=== PATIENT | female | born 1950 | race African-American/Black ===

== ENCOUNTER 2016-11-17 06:17 | Day surgery (SDC) | payer MEDICARE, OTHER ==
--- NOTE | ~2016-11-17 | OP ---
Record Of Operation [facility] [address] [place]. [address] NAME: WOODY BROWN : 54 STATUS : [facility]#: [id number] AGE: 65 ADM/REG DATE : 11/17/16 MR#: [id number] REPORT SERV DATE: 11/18/16 DICTATED BY: MEMO ROCHE DATE: 11/18/16 REPORT STATUS : Draft TRANSCRIBED BY: MODAretha DATE: 11/18/16 DATE OF PROCEDURE: 11/17/2016 PREPROCEDURE DIAGNOSIS: End-stage renal disease. POSTPROCEDURE DIAGNOSIS: End-stage renal disease. PROCEDURE PERFORMED: Creation of a left arm bovine AV graft brachial artery to axillary vein utilizing intraoperative ultrasound guidance. ANESTHESIA: Local MAC with upper arm block. INDICATION FOR PROCEDURE: Secondary to this 65-year-old female presenting with loss of access in the right upper extremity after two year run with peritoneal dialysis. The patient has subsequently PD and requires a graft placed for continued hemodialysis. Risks and benefits were discussed. Consent was obtained. DETAILS OF PROCEDURE: The patient was brought to the operating room, prepped and draped in routine sterile fashion with attention to the left arm. A scalene block was performed by anesthesia and MAC anesthesia was instituted as well. Local anesthesia was supplied in the areas of incision. Ultrasound was utilized to locate the axillary vein which was marked along the skin as well as the brachial artery. Incisions were made based of this finding, and please note that pictures were taken of the ultrasounds drive structures. First the brachial artery dissected down upon, this was then loop controlled and skeletonized and prepared for graft creation. The axillary vein was then dissected down upon and loop controlled and then skeletonized to a point where this could be utilized for dialysis access. Next, 5000 units of heparin was given and allowed to circulate. The brachial artery was then clamped, opened, spatulated and then end-to-side anastomosis was then performed to the 6 mm bovine AV graft. 6 mm graft was then tailored down to 2.5 mm. The anastomosis was performed with a 6-0 Prolene on a BV needle in a running continuous stitch and was hemostatic upon completion. This was tunneled under the skin in a curvilinear fashion back to the axillary vein. The graft was then tailored to fit the vein. The vein was then clamped, opened, and spatulated, and the anastomosis was performed with a 6-0 Prolene on a C1 needle in a running continuous stitch. With that completed, the anastomoses were hemostatic. There was dopplerable signal in the brachial artery in the forearm and the ulnar artery in the hand. Renal artery was diminutive. At this point, the wounds were then closed with Vicryl and Monocryl for the skin. Steri-Strips dressings were applied. The patient tolerated the procedure well. LEONARD/ROSHAN Memo Roche M.D. Record Of [address] [place]. [address] NAME: WOODY BROWN : 54 STATUS : [facility] PAT#: [id number] AGE: 65 ADM/REG DATE : 11/17/16 MR#: [id number] REPORT SERV DATE: 11/18/16 DICTATED BY: MEMO ROCHE DATE: 11/18/16 REPORT STATUS : Draft TRANSCRIBED BY: ROSHAN DATE: 11/18/16 / [id number] CC: Rita Christian PA
[~2016-11-17 06:17] MED LIST: *DENIES; APRES25 PO; ASAB PO; ASAEC PO; BIST PO; BRILINTA90 MG PO; COREG12 PO; COREG25 PO; COZAAR100 MG PO; DENIES TAKING MEDS; EZFE 200200 MG PO; FOLIC PO; GGEXPUD PO; L20 PO; LEVEMIR SC; LIPITOR20 PO; MEGACEUDL PO; MIRALAXPKT PO; MUCINEX600 MG PO; NORCO1 TA1 PO; NORCO1 TA2 PO; NORCO1 TAB PO; NORV10 PO; NORV5 PO; NOVOLOG SC; NOVOPEN SC; NUTRA/PRO PO; NXL9 PO; PHOSLO PO; PRILO PO; PRIN20 PO; PROTONIX PO; REG PO; REG5 PO; ROCALTROL PO; ROCALTROL0.25 MCG PO; ROCALTROL0.5 MCG PO; T PO; TESS PO; TUMSROLL PO; VITAFOL OR; VITAMIN D1000 UNI1 PO; WHITE WILLOW BARK PO; ZITHROMAX100 MG/5 M T; ZOCOR10 PO; ZOFRAN ODT4 MG PO; [UNRECOGNIZED DRUG - REMARK] TOP
[2016-11-17 07:02] LABS: BASOPHILS 0.7 %; BASOPHILS ABSOLUTE 0.06 10/3/uL (0.0-0.16); EOSINOPHILS 4.7 %; EOSINOPHILS ABSOLUTE 0.39 10/3/uL (0.0-0.53); IMMATURE GRANULOCYTES 0.2 %; IMMATURE GRANULOCYTES ABSOLUTE 0.02 10/3/uL (0.0-0.11); LYMPHOCYTES 25.6 %; LYMPHOCYTES ABSOLUTE 2.14 10/3/uL (0.67-4.30); MEAN CORPUSCULAR HEMOGLOB 27.1 pg (26.0-34.0); MEAN PLATELET VOLUME 9.5 fL (9.2-13.0); MONOCYTES 5.4 %; MONOCYTES ABSOLUTE 0.45 10/3/uL (0.21-1.20); NEUTROPHILS 63.4 %; NEUTROPHILS ABSOLUTE 5.29 10/3/uL (2.02-8.40); PLATELET COUNT 265 10/3/uL (150-400); WHITE BLOOD CELLS 8.4 10/3/uL (4.5-10.5)
[2016-11-17 07:16] LABS: BUN (BLOOD UREA NITROGEN) 35 MG/DL (6-23); CHLORIDE, SERUM 98 MMOL/L (96-112); CO2 (CARBON DIOXIDE) 26 MMOL/L (24-34); GLUCOSE, SERUM 94 MG/DL (60-99); HEMATOCRIT 44.9 % (36.0-48.0); HEMOGLOBIN 14.7 g/dL (12.0-16.0); MANUAL DIFF NO %; MEAN CORPUS HGB CONC 32.7 g/dL (32.0-36.0); MEAN CORPUSCULAR VOLUME 82.8 fL (80-100); RED CELL COUNT 5.42 10/6/uL (4.0-5.6)
[2016-11-17 07:17] LABS: CALCIUM, SERUM 8.9 MG/DL (8.5-10.4); CREATININE 8.04 MG/DL (0.55-1.02); GFR AFRICAN AMERICAN 6 ML/MIN (>=60); GFR NON AFRICAN AMERICAN 5 ML/MIN (>=60); POTASSIUM, SERUM 4.3 MMOL/L (3.5-5.3); SODIUM, SERUM 137 MMOL/L (135-148)
== END 2016-11-17 15:00 | disposition home or self-care (01) ==
LOC: SDC 06:17
PROVIDERS: Specialist
PROC: 03180ZF Bypass Left Brachial Artery to Lower Arm Vein, Open Approach (ICD-10-PCS; principal; 2016-11-17 07:45)
DX: I12.0 Hypertensive chronic kidney disease with stage 5 chronic kidney disease or end stage renal disease (principal); E11.22 Type 2 diabetes mellitus with diabetic chronic kidney disease; N18.6 End stage renal disease; I25.10 Atherosclerotic heart disease of native coronary artery without angina pectoris; E11.40 Type 2 diabetes mellitus with diabetic neuropathy, unspecified; E78.00 Pure hypercholesterolemia, unspecified; K21.9 Gastro-esophageal reflux disease without esophagitis; H91.90 Unspecified hearing loss, unspecified ear; M19.90 Unspecified osteoarthritis, unspecified site; Z95.5 Presence of coronary angioplasty implant and graft; Z91.048 Other nonmedicinal substance allergy status; Z79.899 Other long term (current) drug therapy; Z87.891 Personal history of nicotine dependence; Z99.2 Dependence on renal dialysis; Z90.89 Acquired absence of other organs; Z98.890 Other specified postprocedural states
CPT/HCPCS: 71010; 80048; 82962; 85025; 93005; C1768; J0690; J2250; J2795; J3010

== ENCOUNTER 2016-12-31 19:44 | Emergency (ER) | payer MEDICARE, OTHER ==
[2016-12-31 19:24] LABS: BASOPHILS 1.4 %; BASOPHILS ABSOLUTE 0.12 10/3/uL (0.0-0.16); EOSINOPHILS 10.5 %; EOSINOPHILS ABSOLUTE 0.89 10/3/uL (0.0-0.53); HEMOGLOBIN 12.3 g/dL (12.0-16.0); IMMATURE GRANULOCYTES 0.1 %; IMMATURE GRANULOCYTES ABSOLUTE 0.01 10/3/uL (0.0-0.11); LYMPHOCYTES 45.1 %; LYMPHOCYTES ABSOLUTE 3.81 10/3/uL (0.67-4.30); MEAN CORPUS HGB CONC 31.8 g/dL (32.0-36.0); MEAN CORPUSCULAR HEMOGLOB 26.5 pg (26.0-34.0); MEAN CORPUSCULAR VOLUME 83.2 fL (80-100); MEAN PLATELET VOLUME 9.6 fL (9.2-13.0); MONOCYTES 7.8 %; MONOCYTES ABSOLUTE 0.66 10/3/uL (0.21-1.20); NEUTROPHILS 35.1 %; NEUTROPHILS ABSOLUTE 2.95 10/3/uL (2.02-8.40); PLATELET COUNT 205 10/3/uL (150-400); RBC DISTRIBUTION WIDTH 16.9 % (12.0-16.0); RED CELL COUNT 4.65 10/6/uL (4.0-5.6); WHITE BLOOD CELLS 8.4 10/3/uL (4.5-10.5)
[2016-12-31 19:26] LABS: HEMATOCRIT 38.7 % (36.0-48.0); MANUAL DIFF NO %
[2016-12-31 19:42] LABS: CALCIUM, SERUM 8.5 MG/DL (8.5-10.4); CHLORIDE, SERUM 101 MMOL/L (96-112); SGPT(ALT) 16 U/L (5-65); SODIUM, SERUM 138 MMOL/L (135-148); TOTAL BILIRUBIN 0.5 MG/DL (0-1.2)
[2016-12-31 19:44] LABS: ALBUMIN 3.3 G/DL (3.5-5.0); ALKALINE PHOSPHATASE 80 U/L (45-117); BUN (BLOOD UREA NITROGEN) 16 MG/DL (6-23); CO2 (CARBON DIOXIDE) 33 MMOL/L (24-34); CREATININE 3.61 MG/DL (0.55-1.02); GFR AFRICAN AMERICAN 15 ML/MIN (>=60); GFR NON AFRICAN AMERICAN 13 ML/MIN (>=60); GLOBULIN 3.4 G/DL (2.5-4.1); GLUCOSE, SERUM 66 MG/DL (60-99); POTASSIUM, SERUM 4.9 MMOL/L (3.5-5.3); SGOT(AST) 20 U/L (5-40); TOTAL PROTEIN 6.7 G/DL (6.0-8.5)
== END 2017-01-01 01:10 | disposition home or self-care (01) ==
LOC: ER 19:44
PROVIDERS: Emergency Medicine
DX: R41.0 Disorientation, unspecified (principal); T42.6X5A Adverse effect of other antiepileptic and sedative-hypnotic drugs, initial encounter; I11.0 Hypertensive heart disease with heart failure; I50.9 Heart failure, unspecified; I25.10 Atherosclerotic heart disease of native coronary artery without angina pectoris; K21.9 Gastro-esophageal reflux disease without esophagitis; E11.9 Type 2 diabetes mellitus without complications; D64.9 Anemia, unspecified; Z95.5 Presence of coronary angioplasty implant and graft; Z88.8 Allergy status to other drugs, medicaments and biological substances; Z91.048 Other nonmedicinal substance allergy status; Z79.899 Other long term (current) drug therapy
CPT/HCPCS: 80053; 85025; 99284; A9270-GY